=== PATIENT | male | born 1975 | race American Indian/Alaskan Native ===

== ENCOUNTER 2021-10-31 10:10 | Emergency (ER) | payer MEDICARE ==
[2021-10-31 10:37] VITALS: BP 132/87
[2021-10-31] MEDS ORDERED: HYDROcodone/ACETAMINOPHEN 5-325 MG TAB PO ONE (14:36)
[2021-10-31] MEDS ORDERED: clonazePAM 0.5 MG TAB PO ONE (14:38)
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
== END 2021-10-31 15:12 | disposition left against medical advice (07) ==
LOC: ED 10:10
DX: F43.9 Reaction to severe stress, unspecified (principal); I10 Essential (primary) hypertension; M19.90 Unspecified osteoarthritis, unspecified site; F31.9 Bipolar disorder, unspecified
CPT/HCPCS: 99282